=== PATIENT | female | born 1955 | race Caucasian/White ===

== ENCOUNTER → 2017-08-04 | Outpatient (CLI) | payer OTHER | END | disposition home or self-care (01) | LOC: KCIC MRI 09:41 | DX: M51.36 Other intervertebral disc degeneration, lumbar region (principal); M48.07 Spinal stenosis, lumbosacral region; M43.17 Spondylolisthesis, lumbosacral region; G89.29 Other chronic pain | CPT/HCPCS: 72148 ==

== ENCOUNTER → 2017-09-15 | Outpatient (CLI) | payer OTHER | END | disposition home or self-care (01) | LOC: KCIC MAMMO 09:41 | DX: Z12.31 Encounter for screening mammogram for malignant neoplasm of breast (principal) | CPT/HCPCS: 77067 ==

== ENCOUNTER → 2018-09-20 | Outpatient (CLI) | payer OTHER ==
[2014-08-22 09:26] VITALS: BP 104/77
[~2018-09-20] MED LIST: CHOL200074 PO; ESOM40CA PO; HYDR-2145 PO; LOSA1TAB19 PO; METF500T16 PO; OLAN1CAP3 PO; OLME1TAB21 PO; OLME20TA17 PO; OMEG1000 PO; PHEN37.598 PO; POTA20TA82 PO; POTA99TA PO; RANI-376 PO; SIMV40TA PO; TURM538C PO; ZOLP10TA PO
--- NOTE | 2018-09-20 14:00 | KCIC ---
Bilateral digital screening mammograms: Reason for examination: Routine screening. Comparison is made to previous studies dated 09/15/2017 and 09/15/2016. Interpretation was made with the benefit of CAD. The skin and nipples show no abnormalities. No abnormal axillary lymph nodes are seen. The breast parenchyma is extremely dense. (Breast density: Category D.) There continues to be a lipoma present posterior medially in the right breast. There are no new dominant masses, suspicious calcifications or architectural distortion. A few benign calcifications are again seen. Impression: No evidence of malignancy. Recommend routine screening. Your patient's mammogram demonstrates that she has dense breast tissue (breast density category C or D), which could hide abnormalities, and if she has other risk factors for breast cancer that have been identified, she might benefit from supplemental screening tests that may be suggested by you as her ordering physician. Dense breast tissue, in and of itself, is a relatively common condition. Therefore, this information is not provided to cause undue concern, but rather to raise your awareness and to promote discussion with your patient regarding the presence of other risk factors, in addition to dense breast tissue. Your patient's mammography results will be sent to her. BI-RAD Category 2: Benign. "Our facility is accredited by the [employer] Mammography [employer]." This patient's information has been entered into a reminder system for the patient to be notified with the results of her examination and a target date for the next mammogram. Electronically signed by: Karley Grier MD (09/20/2018 1:57 PM) [id number]
== END | disposition home or self-care (01) ==
LOC: KCIC MAMMO 10:54
PROVIDERS: ATTEND Physician Assistant Medical
DX: Z12.31 Encounter for screening mammogram for malignant neoplasm of breast (principal); D17.39 Benign lipomatous neoplasm of skin and subcutaneous tissue of other sites; N64.89 Other specified disorders of breast
CPT/HCPCS: 77067

== ENCOUNTER → 2019-11-08 | Outpatient (CLI) | payer OTHER ==
[2014-08-22 09:26] VITALS: BP 104/77
[~2019-11-08] MED LIST changes: +POTA20TA4 PO; -POTA20TA82 PO
--- NOTE | 2019-11-08 12:42 | KCIC ---
Bilateral digital screening mammograms with 3-D tomosynthesis: Reason for examination: Routine screening. Comparison is made to previous studies dated back to 08/28/2015. Bilateral mammograms in CC and oblique projections were obtained with 2-D imaging and 3-D tomosynthesis imaging on a Siemens Inspiration unit and reviewed on the workstation. Interpretation was made with the benefit of CAD. The skin and nipples show no abnormalities. No abnormal axillary lymph nodes are seen. The breast parenchyma is extremely dense. (Breast density: Category D.) There are some clustered calcifications present centrally at the 2:00 B position of the right breast. Further evaluation with coned magnification views is recommended. The continues to be a lipoma posterior medially in the 3:00 C position of the right breast which is stable. There are benign calcifications at the 9:00 B position of the left breast which are stable. There are no other new dominant masses, suspicious calcifications or architectural distortion. Impression: Clustered calcifications in the right breast at the 2:00 B position centrally. Recommend further evaluation with coned magnification views. Your patient's mammogram demonstrates that she has dense breast tissue (breast density category C or D), which could hide abnormalities, and if she has other risk factors for breast cancer that have been identified, she might benefit from supplemental screening tests that may be suggested by you as her ordering physician. Dense breast tissue, in and of itself, is a relatively common condition. Therefore, this information is not provided to cause undue concern, but rather to raise your awareness and to promote discussion with your patient regarding the presence of other risk factors, in addition to dense breast tissue. Your patient's mammography results will be sent to her. BI-RAD Category 0: Incomplete. Needs additional imaging evaluation. "Our facility is accredited by the [employer]ammography [employer]." This patient's information has been entered into a reminder system for the patient to be notified with the results of her examination and a target date for the next mammogram. Electronically signed by: Karley Grier MD (11/08/2019 12:39 PM) [email or web address]
== END | disposition home or self-care (01) ==
LOC: KCIC MAMMO 10:44
PROVIDERS: ATTEND Physician Assistant Medical
DX: Z12.31 Encounter for screening mammogram for malignant neoplasm of breast (principal); N64.89 Other specified disorders of breast
CPT/HCPCS: 77067

== ENCOUNTER → 2019-12-27 | Outpatient (CLI) | payer OTHER ==
[2014-08-22 09:26] VITALS: BP 104/77
--- NOTE | 2019-12-27 09:59 | KCIC ---
Indication: Postmenopausal screening for osteoporosis. Bone Density: -BMD: (g/cm2) - AP Spine Total (L1-L4)..........0.931. - Total left Hip.................0.792. T-Score: - AP Spine Total (L1-L4).........-1.1. - Total left Hip.................-1.2. Z-Score: - AP Spine Total (L1-L4)..........0.7. - Total left Hip.................0. World Health Organization criteria for BMD interpretation classify patients as Normal (T-score at or above -1.0), Osteopenic (T-score between -1.0 and -2.5), or Osteoporotic (T-score at or below -2.5). Impression: 1. AP Spine Total L1-L4---osteopenia. 2. Total left Hip---osteopenia. Electronically signed by: Robby Albert MD (12/27/2019 9:56 AM) [id number]
--- NOTE | 2019-12-27 12:12 | KCIC ---
Right breast diagnostic digital mammograms: Reason for examination: Right breast calcifications on screening mammogram. Comparison is made to mammographic exam dated 11/08/2019. Coned magnification views were obtained in CC and lateral projections. A cluster of microcalcifications persists at the 2:00 B position. DCIS cannot be excluded. Further evaluation with stereotactic biopsy is recommended. IMPRESSION: Clustered microcalcifications at the 2:00 B position of the right breast. DCIS cannot be excluded. Recommend stereotactic biopsy. BI-RADS Category 4: Suspicious. These findings were discussed with the patient and the patient's PA, Rox Bishop, was notified about these findings at 12 09T a.m. on 12/27/2019. "Our facility is accredited by the [employer] Mammography [employer]." Electronically signed by: Karley Grier MD (12/27/2019 12:09 PM) [email or web address]
== END ==
LOC: KCIC MAMMO 08:16
PROVIDERS: ATTEND Physician Assistant Medical
DX: M85.88 Other specified disorders of bone density and structure, other site (principal); R92.1 Mammographic calcification found on diagnostic imaging of breast
CPT/HCPCS: 77065; 77080

== ENCOUNTER → 2020-10-28 | Day surgery (SDC) | payer MEDICARE ==
[~2020-10-28] VITALS: Ht 162.6 cm; Wt 85.0 kg
[~2020-10-28] MED LIST changes: +HYDROmorphone 2 MG/ML VIAL IVP PRN; +IV RINGERS,LACTATED 1000ML 1,000 ML IV SCH; +LIDOCAINE 2% PF 5 ML VIAL. ONE; +MORPHINE SULFATE 2 MG/ML VIAL. IVP PRN; +PROCHLORPERAZINE 10 MG/2 ML VIAL. IVP PRN; +PROPOFOL 10 MG/ML (20ML) VIAL. IV ONE; +fentaNYL PF VIAL 100 MCG/2 ML VIAL IVP PRN
[2020-10-28 06:43] VITALS: BP 135/76
[2020-10-28 08:10] VITALS: BP 148/78
--- NOTE | 2020-10-30 18:07 | PATHOLOGY ---
[facility] Accession Number: [id number] . 01 Material submitted: . gastrointestinal site - GASTRIC POLYP BIOPSY . 01 Clinical history: . DYSPHAGIA,FAMILY HISTORY COLON CANCER EGD/COLONOSCOPY . 02 Diagnosis: Gastric biopsies, gastric polyp: - Fundic gland polyp. (JPM:frandy; 10/30/2020) S 10/30/2020 0824 Local . 02 Comment: Sections of the gastric biopsy reveal segments of gastric fundic mucosa showing focal cystically dilated fundic glands consistent with fundic gland polyp. There are no adenomatous changes or evidence of malignancy. (JPM:frandy; 10/30/2020) . 02 Electronically signed: . Scott Umaña MD, Pathologist NPI- [id number] . 01 Gross description: . Received in formalin labeled "Danelle Feliciano, gastric polyp biopsy" are 2 lyles-brown soft tissue fragments measuring in aggregate 0.5 x 0.2 x 0.1 cm. The specimen is submitted entirely in A1. (JÚNIOR; 10/29/2020) JÚNIOR/JÚNIOR 10/29/2020 1554 Local . 02 Pathologist provided ICD-10: K31.7 . 02 CPT . 254388 Specimen Comment: A courtesy copy of this report has been sent to [phone], [phone] Specimen Comment: [id number] Specimen Comment: Report sent to / DR MEJÍA Specimen Comment: Report sent to Performed at: [facility] [address], [place] [id number] MD Jose Sánchez MD Phone: [phone] Performed at: 02 [facility] [address], [place] [id number] MD Scott Umaña MD Phone: [phone]
== END | disposition home or self-care (01) ==
LOC: SURG 06:31
PROVIDERS: ATTEND Internal Medicine Gastroenterology
DX: Z12.11 Encounter for screening for malignant neoplasm of colon (principal); R13.10 Dysphagia, unspecified; K64.0 First degree hemorrhoids; K57.30 Diverticulosis of large intestine without perforation or abscess without bleeding; K31.89 Other diseases of stomach and duodenum; K31.7 Polyp of stomach and duodenum; K21.9 Gastro-esophageal reflux disease without esophagitis; I10 Essential (primary) hypertension; E78.00 Pure hypercholesterolemia, unspecified; E11.9 Type 2 diabetes mellitus without complications; M19.90 Unspecified osteoarthritis, unspecified site; F32.9 Major depressive disorder, single episode, unspecified; Z85.038 Personal history of other malignant neoplasm of large intestine; Z79.84 Long term (current) use of oral hypoglycemic drugs; Z79.899 Other long term (current) drug therapy; Z90.710 Acquired absence of both cervix and uterus; Z98.890 Other specified postprocedural states
CPT/HCPCS: 43239; 43450; 88305; G0105; J2704; 45378